=== PATIENT | male | born 1970 | race Hispanic/Latino ===

== ENCOUNTER → 2025-01-04 | Outpatient (CLI) | payer MEDICAID ==
[~2025-01-04] MED LIST: ATOR40TA69 PO; CLOP-31 PO
== END | disposition home or self-care (01) ==
LOC: WHH 09:58
PROVIDERS: ATTEND Family Medicine
DX: T87.89 Other complications of amputation stump (principal); E11.621 Type 2 diabetes mellitus with foot ulcer; L97.525 Non-pressure chronic ulcer of other part of left foot with muscle involvement without evidence of necrosis; E11.52 Type 2 diabetes mellitus with diabetic peripheral angiopathy with gangrene; A48.0 Gas gangrene; I87.2 Venous insufficiency (chronic) (peripheral); I10 Essential (primary) hypertension; E78.5 Hyperlipidemia, unspecified; F17.200 Nicotine dependence, unspecified, uncomplicated; Z79.899 Other long term (current) drug therapy; Z86.73 Personal history of transient ischemic attack (TIA), and cerebral infarction without residual deficits; Y83.5 Amputation of limb(s) as the cause of abnormal reaction of the patient, or of later complication, without mention of misadventure at the time of the procedure
CPT/HCPCS: 99215; A6248; A6209; A4450

== ENCOUNTER → 2025-01-11 | Outpatient (CLI) | payer MEDICAID | END | disposition home or self-care (01) | LOC: WHH 09:44 | PROVIDERS: ATTEND Family Medicine | DX: T87.89 Other complications of amputation stump (principal); E11.621 Type 2 diabetes mellitus with foot ulcer; L97.525 Non-pressure chronic ulcer of other part of left foot with muscle involvement without evidence of necrosis; E11.52 Type 2 diabetes mellitus with diabetic peripheral angiopathy with gangrene; A48.0 Gas gangrene; I87.2 Venous insufficiency (chronic) (peripheral); I10 Essential (primary) hypertension; E78.5 Hyperlipidemia, unspecified; F17.200 Nicotine dependence, unspecified, uncomplicated; Z79.899 Other long term (current) drug therapy; Z86.73 Personal history of transient ischemic attack (TIA), and cerebral infarction without residual deficits; Y83.5 Amputation of limb(s) as the cause of abnormal reaction of the patient, or of later complication, without mention of misadventure at the time of the procedure | CPT/HCPCS: 99214; A6209 ==

== ENCOUNTER → 2025-01-18 | Outpatient (CLI) | payer MEDICAID | END | disposition home or self-care (01) | LOC: WHH 08:54 | PROVIDERS: ATTEND Family Medicine | DX: T87.89 Other complications of amputation stump (principal); E11.621 Type 2 diabetes mellitus with foot ulcer; L97.525 Non-pressure chronic ulcer of other part of left foot with muscle involvement without evidence of necrosis; E11.52 Type 2 diabetes mellitus with diabetic peripheral angiopathy with gangrene; A48.0 Gas gangrene; I87.2 Venous insufficiency (chronic) (peripheral); I10 Essential (primary) hypertension; E78.5 Hyperlipidemia, unspecified; F17.200 Nicotine dependence, unspecified, uncomplicated; Z79.899 Other long term (current) drug therapy; Z86.73 Personal history of transient ischemic attack (TIA), and cerebral infarction without residual deficits; Y83.5 Amputation of limb(s) as the cause of abnormal reaction of the patient, or of later complication, without mention of misadventure at the time of the procedure | CPT/HCPCS: 99214; A6209 ==

== ENCOUNTER → 2025-01-25 | Outpatient (CLI) | payer MEDICAID ==
[~2025-01-25] MED LIST changes: -ATOR40TA69 PO; -CLOP-31 PO; +SILVER NITRATE APPLICATOR 1 SWAB TP ONE
== END | disposition home or self-care (01) ==
LOC: WHH 08:52
PROVIDERS: ATTEND Family Medicine
DX: T87.89 Other complications of amputation stump (principal); E11.621 Type 2 diabetes mellitus with foot ulcer; L97.525 Non-pressure chronic ulcer of other part of left foot with muscle involvement without evidence of necrosis; E11.52 Type 2 diabetes mellitus with diabetic peripheral angiopathy with gangrene; A48.0 Gas gangrene; I87.2 Venous insufficiency (chronic) (peripheral); I10 Essential (primary) hypertension; E78.5 Hyperlipidemia, unspecified; F17.200 Nicotine dependence, unspecified, uncomplicated; Z79.899 Other long term (current) drug therapy; Z86.73 Personal history of transient ischemic attack (TIA), and cerebral infarction without residual deficits; Y83.5 Amputation of limb(s) as the cause of abnormal reaction of the patient, or of later complication, without mention of misadventure at the time of the procedure
CPT/HCPCS: 17250; A6209

== ENCOUNTER → 2025-02-01 | Outpatient (CLI) | payer MEDICAID | END | disposition home or self-care (01) | LOC: WHH 08:45 | PROVIDERS: ATTEND Family Medicine | DX: T87.89 Other complications of amputation stump (principal); E11.621 Type 2 diabetes mellitus with foot ulcer; L97.525 Non-pressure chronic ulcer of other part of left foot with muscle involvement without evidence of necrosis; E11.52 Type 2 diabetes mellitus with diabetic peripheral angiopathy with gangrene; A48.0 Gas gangrene; I87.2 Venous insufficiency (chronic) (peripheral); I10 Essential (primary) hypertension; E78.5 Hyperlipidemia, unspecified; F17.200 Nicotine dependence, unspecified, uncomplicated; Z79.899 Other long term (current) drug therapy; Z86.73 Personal history of transient ischemic attack (TIA), and cerebral infarction without residual deficits; Y83.5 Amputation of limb(s) as the cause of abnormal reaction of the patient, or of later complication, without mention of misadventure at the time of the procedure | CPT/HCPCS: 99214; A6209; A4450 ==

== ENCOUNTER → 2025-02-08 | Outpatient (CLI) | payer MEDICAID | END | disposition home or self-care (01) | LOC: WHH 09:00 | PROVIDERS: ATTEND Family Medicine | DX: T87.89 Other complications of amputation stump (principal); E11.621 Type 2 diabetes mellitus with foot ulcer; L97.525 Non-pressure chronic ulcer of other part of left foot with muscle involvement without evidence of necrosis; E11.52 Type 2 diabetes mellitus with diabetic peripheral angiopathy with gangrene; A48.0 Gas gangrene; I87.2 Venous insufficiency (chronic) (peripheral); I10 Essential (primary) hypertension; E78.5 Hyperlipidemia, unspecified; F17.200 Nicotine dependence, unspecified, uncomplicated; Z79.899 Other long term (current) drug therapy; Z86.73 Personal history of transient ischemic attack (TIA), and cerebral infarction without residual deficits; Y83.5 Amputation of limb(s) as the cause of abnormal reaction of the patient, or of later complication, without mention of misadventure at the time of the procedure | CPT/HCPCS: 99214; A6209 ==

== ENCOUNTER → 2025-02-22 | Outpatient (CLI) | payer MEDICAID ==
[~2025-02-22] MED LIST changes: +ATOR40TA69 PO; +CLOP-31 PO; +LIDOCAINE HCL 4% LTA SOL 4 ML VIAL TP ONE; -SILVER NITRATE APPLICATOR 1 SWAB TP ONE
== END | disposition home or self-care (01) ==
LOC: WHH 08:42
PROVIDERS: ATTEND Family Medicine
DX: T87.89 Other complications of amputation stump (principal); E11.621 Type 2 diabetes mellitus with foot ulcer; L97.528 Non-pressure chronic ulcer of other part of left foot with other specified severity; E11.52 Type 2 diabetes mellitus with diabetic peripheral angiopathy with gangrene; A48.0 Gas gangrene; I87.2 Venous insufficiency (chronic) (peripheral); I10 Essential (primary) hypertension; E78.5 Hyperlipidemia, unspecified; F17.200 Nicotine dependence, unspecified, uncomplicated; Z79.899 Other long term (current) drug therapy; Z86.73 Personal history of transient ischemic attack (TIA), and cerebral infarction without residual deficits; Y83.5 Amputation of limb(s) as the cause of abnormal reaction of the patient, or of later complication, without mention of misadventure at the time of the procedure
CPT/HCPCS: 99214